=== PATIENT | female | born 1930 | race Caucasian/White ===

== ENCOUNTER → 2017-04-06 | Outpatient (CLI) | payer OTHER ==
[~2017-04-06] MED LIST: GADOBUTROL 10 ML VIAL IVP ONE
== END ==
LOC: FIMAGING 15:24
PROVIDERS: ATTEND Psychiatry & Neurology Neurology
DX: R41.3 Other amnesia (principal); H91.20 Sudden idiopathic hearing loss, unspecified ear
CPT/HCPCS: 70553; A9585

== ENCOUNTER → 2017-04-18 | Outpatient (CLI) | payer OTHER | LOC: BMCIMAGING 14:22 | PROVIDERS: ATTEND Internal Medicine Cardiovascular Disease | DX: R60.0 Localized edema (principal); M79.604 Pain in right leg ==

== ENCOUNTER 2018-01-01 20:43 | Observation (INO) | payer OTHER ==
--- NOTE | 2018-01-01 21:13 | CPEKG ---
Heart Rate: 90 RR Interval: 667 P-R Interval: 172 QRSD Interval: 82 QT Interval: 344 QTC Interval: 421 P [place]: 22 QRS [place]: 26 T Wave [place]: 27 EKG Severity - BORDERLINE ECG - EKG Impression: SINUS RHYTHM EKG Impression: CONSIDER ANTERIOR INFARCT Electronically Signed By: Young Cuevas 02-Jan-2018 05:26:23
[2018-01-01 21:39] LABS: PLATELET COUNT 233 10^3/uL (150-400)
[2018-01-02] MEDS ORDERED: ONDANSETRON DISINTEGRATING 4 MG TAB PO PRN (00:03)
[2018-01-02] MEDS ORDERED: ONDANSETRON 4 MG/2 ML VIAL IVP PRN (00:03)
[2018-01-02] MEDS ORDERED: ACETAMINOPHEN 325 MG TAB PO PRN (00:03)
--- NOTE | 2018-01-02 00:05 | EDPHY ---
H & P Stated Complaint: PASSED OUT 1809,DAVILA EARLIER,VOMIT X1, FIGHTING COLD RECENTLY Time Seen by Provider: 01/01/18 22:07 HPI/ROS: Chief Complaint: Syncope HPI: 87-year-old woman with a history of hypertension whose had very mild upper respiratory congestion for the last couple days was walking down the hallway of her home earlier this evening with her home health aide when she had a witnessed syncopal event. Patient was lowered to the floor. Did not hit her head. There were no preceding symptoms. No chest pain. No shortness of breath. No palpitations. About an hour later she was sitting at the dining room table and had 1 emesis. No fevers or chills. No cough. No nausea vomiting or diarrhea. ROS: 10 point Review of Systems is negative except as noted in the HPI. PMH: Hypertension Medications: Hydrochlorothiazide, lisinopril, atorvastatin, aspirin 81 mg daily Social History: No smoking, no alcohol, no recreational drug use Family History: non-contributory Physical Exam: Gen: Awake, Alert, No Distress HEENT: Nose: no rhinorrhea Eyes: PERRLA, EOMI Mouth: Moist mucosa Neck: Supple, no JVD Chest: nontender, lungs clear to auscultation Heart: S1, S2 normal, 2 in 6 systolic ejection murmur at the left sternal border Abd: Soft, non-tender, no guarding Back: no CVA tenderness, no midline tenderness Ext: no edema, non-tender Skin: no rash Neuro: CN II-XII intact, Sensation grossly intact, Strength 5/5 in bilateral upper and lower extremities - Personal History Current Tetanus/Diphtheria Vaccine: Yes - Medical/Surgical History Hx Asthma: No Hx Chronic Respiratory Disease: No Hx Diabetes: No Hx Cardiac Disease: No Hx Renal Disease: No Hx Cirrhosis: No Hx Alcoholism: No Hx HIV/AIDS: No Hx Splenectomy or Spleen Trauma: No Other PMH: DEMENTIA, HIGH CHOL, HTN - Social History Smoking Status: Never smoked Constitutional: Initial Vital Signs Temperature (C) 36.6 C 01/01/18 20:50 Heart Rate 90 01/01/18 20:50 Respiratory Rate 18 01/01/18 20:50 Blood Pressure 154/92 H 01/01/18 20:50 O2 Sat (%) 98 01/01/18 20:50 O2 Delivery Mode Room Air Allergies/Adverse Reactions: meperidine [Meperidine] Allergy (Intermediate, Verified 01/01/18 20:56) agitation, disorientation Home Medications: Medication Instructions Recorded Aspirin 01/01/18 Atorvastatin Calcium 01/01/18 Coq10 01/01/18 Fish Oil 1,200 mg Softgel 01/01/18 Hydrochlorothiazide [HCTZ (*)] 01/01/18 Lisinopril 01/01/18 Melatonin 01/01/18 Vitamin A 01/01/18 Vitamin D3 01/01/18 Vitamin E 01/01/18 Medical Decision Making - Diagnostics EKG Interpretation: ECG time 9:10 p.m. Sinus rhythm with a rate of 90, normal axis, normal intervals , no acute ST or T-wave changes. ED Course/Re-evaluation: 87-year-old woman who had an unprovoked syncopal episode while walking this evening. She does appear mildly clinically dehydrated. Her sodium is a bit low 128. No acute changes on her ECG. Troponin is normal. I have discussed with Dr. Sullivan, hospitalist. Will admit to [facility] telemetry for gentle hydration and further monitoring. - Data Points Laboratory Results: Laboratory Results 01/01/18 21:15 01/01/18 21:15 01/01/18 01/01/18 21:15 21:15 WBC 8.88 10^3/uL 10^3/uL (3.80-9.50) RBC 4.81 10^6/uL 10^6/uL (4.18-5.33) Hgb 15.3 g/dL g/dL (12.6-16.3) Hct 43.8 % % (38.0-47.0) MCV 91.1 fL fL (81.5-99.8) MCH 31.8 pg pg (27.9-34.1) MCHC 34.9 g/dL g/dL (32.4-36.7) RDW 13.9 % % (11.5-15.2) Plt Count 233 10^3/uL 10^3/uL (150-400) MPV 8.5 fL L fL (8.7-11.7) Neut % (Auto) 90.9 % H % (39.3-74.2) Lymph % (Auto) 2.8 % L % (15.0-45.0) [place] % (Auto) 5.9 % % (4.5-13.0) Eos % (Auto) 0.0 % L % (0.6-7.6) Baso % (Auto) 0.2 % L % (0.3-1.7) Nucleat RBC Rel Count 0.0 % % (0.0-0.2) Absolute Neuts (auto) 8.07 10^3/uL H 10^3/uL (1.70-6.50) Absolute Lymphs (auto) 0.25 10^3/uL L 10^3/uL (1.00-3.00) Absolute Monos (auto) 0.52 10^3/uL 10^3/uL (0.30-0.80) Absolute Eos (auto) 0.00 10^3/uL L 10^3/uL (0.03-0.40) Absolute Basos (auto) 0.02 10^3/uL 10^3/uL (0.02-0.10) Absolute Nucleated RBC 0.00 10^3/uL 10^3/uL (0-0.01) Immature Gran % 0.2 % % (0.0-1.1) Immature Gran # 0.02 10^3/uL 10^3/uL (0.00-0.10) Sodium 128 mEq/L L mEq/L (135-145) Potassium 4.5 mEq/L mEq/L (3.5-5.2) Chloride 94 mEq/L L mEq/L (97-110) Carbon Dioxide 24 mEq/l mEq/l (22-31) Anion Gap 10 mEq/L mEq/L (8-16) BUN 20 mg/dL mg/dL (7-23) Creatinine 0.5 mg/dL L mg/dL (0.6-1.0) Estimated GFR > 60 Glucose 139 mg/dL H mg/dL (70-100) Calcium 8.5 mg/dL mg/dL (8.5-10.4) Troponin I < 0.012 ng/mL ng/mL (0.000-0.034) Departure - Departure Disposition: [facility] Clinical Impression: Syncope Condition: Fair Referrals: Gogo Lawson MD [Primary Care Provider] - As per Instructions
--- NOTE | 2018-01-02 02:18 | PDGENHP ---
History and Physical - Chief Complaint Syncope - History of Present Illness 87 yo F w/ hx of HTN presents after syncopal episode. Patient has had cold symptoms (congestion, fatigue) for 2 days. On the morning of admission she was walking with her AWNING ERECTOR when she experienced a syncopal episode. Per report she was unconscious for about 3 minutes. Bystanders did not note any convulsions. She quickly returned to baseline mental status after the episode. She did have an episode of nause and vomiting shortly after. She has not had similar symptoms before and recently saw her PCP who was happy with her health. She denies any recent decrease in exercise tolerance, dyspnea, chest pain, etc. History Information - Allergies/Home Medication List Allergies/Adverse Reactions: meperidine [Meperidine] Allergy (Intermediate, Verified 01/01/18 20:56) agitation, disorientation Home Medications: Aspirin 01/01/18 [Last Taken Unknown] Atorvastatin Calcium 01/01/18 [Last Taken Unknown] Coq10 01/01/18 [Last Taken Unknown] Fish Oil 1,200 mg Softgel 01/01/18 [Last Taken Unknown] Hydrochlorothiazide [HCTZ (*)] 01/01/18 [Last Taken Unknown] Lisinopril 01/01/18 [Last Taken Unknown] Melatonin 01/01/18 [Last Taken Unknown] Vitamin A 01/01/18 [Last Taken Unknown] Vitamin D3 01/01/18 [Last Taken Unknown] Vitamin E 01/01/18 [Last Taken Unknown] I have personally reviewed and updated: family history, medical history - Past Medical History hypertension - Family History Additional family history: Asked, denies - Social History Smoking Status: Never smoked Review of Systems Review of Systems: ROS: 10pt was reviewed & negative except for what was stated in HPI & below Physical Exam Physical Exam: Temp Pulse Resp BP Pulse Ox 36.9 C 95 18 156/86 H 91 L 01/02/18 01:28 01/02/18 01:28 01/02/18 01:28 01/02/18 01:28 01/02/18 01:28 Constitutional: no apparent distress, not in pain Eyes: PERRL, EOMI Ears, Nose, Mouth, Throat: moist mucous membranes, no oral mucosal ulcers Cardiovascular: regular rate and rhythym, systolic murmur (2/6 @ LUSB), other ( Carotid upstroke not delayed) Respiratory: no respiratory distress, clear to auscultation Gastrointestinal: normoactive bowel sounds, soft, non-tender abdomen Skin: warm, normal color Musculoskeletal: full muscle strength, no muscle tenderness Neurologic: AAOx3, CN II-XII Intact Psychiatric: interacting appropriately, not anxious Lab Data & Imaging Review 01/01/18 21:15 01/01/18 21:15 WBC 8.88 10^3/uL (3.80-9.50) 01/01/18 21:15 RBC 4.81 10^6/uL (4.18-5.33) 01/01/18 21:15 Hgb 15.3 g/dL (12.6-16.3) 01/01/18 21:15 Hct 43.8 % (38.0-47.0) 01/01/18 21:15 MCV 91.1 fL (81.5-99.8) 01/01/18 21:15 MCH 31.8 pg (27.9-34.1) 01/01/18 21:15 MCHC 34.9 g/dL (32.4-36.7) 01/01/18 21:15 RDW 13.9 % (11.5-15.2) 01/01/18 21:15 Plt Count 233 10^3/uL (150-400) 01/01/18 21:15 MPV 8.5 fL (8.7-11.7) L 01/01/18 21:15 Neut % (Auto) 90.9 % (39.3-74.2) H 01/01/18 21:15 Lymph % (Auto) 2.8 % (15.0-45.0) L 01/01/18 21:15 [place] % (Auto) 5.9 % (4.5-13.0) 01/01/18 21:15 Eos % (Auto) 0.0 % (0.6-7.6) L 01/01/18 21:15 Baso % (Auto) 0.2 % (0.3-1.7) L 01/01/18 21:15 Nucleat RBC Rel Count 0.0 % (0.0-0.2) 01/01/18 21:15 Absolute Neuts (auto) 8.07 10^3/uL (1.70-6.50) H 01/01/18 21:15 Absolute Lymphs (auto) 0.25 10^3/uL (1.00-3.00) L 01/01/18 21:15 Absolute Monos (auto) 0.52 10^3/uL (0.30-0.80) 01/01/18 21:15 Absolute Eos (auto) 0.00 10^3/uL (0.03-0.40) L 01/01/18 21:15 Absolute Basos (auto) 0.02 10^3/uL (0.02-0.10) 01/01/18 21:15 Absolute Nucleated RBC 0.00 10^3/uL (0-0.01) 01/01/18 21:15 Immature Gran % 0.2 % (0.0-1.1) 01/01/18 21:15 Immature Gran # 0.02 10^3/uL (0.00-0.10) 01/01/18 21:15 Sodium 128 mEq/L (135-145) L 01/01/18 21:15 Potassium 4.5 mEq/L (3.5-5.2) 01/01/18 21:15 Chloride 94 mEq/L (97-110) L 01/01/18 21:15 Carbon Dioxide 24 mEq/l (22-31) 01/01/18:15 Anion Gap 10 mEq/L (8-16) 01/01/18 21:15 BUN 20 mg/dL (7-23) 01/01/18 21:15 Creatinine 0.5 mg/dL (0.6-1.0) L 01/01/18 21:15 Estimated GFR > 60 01/01/18 21:15 Glucose 139 mg/dL (70-100) H 01/01/18 21:15 Calcium 8.5 mg/dL (8.5-10.4) 01/01/18 21:15 Troponin I < 0.012 ng/mL (0.000-0.034) 01/01/18 21:15 Visualized and Interpreted EKG results: Yes EKG Interpretation: Positive for: normal sinsus rhythm, other (poor R wave progression) Assessment & Plan Assessment: 87 yo F w/ HTN presents w/ syncope of unclear etiology. Plan: 1. Syncope - Unclear etiology, no preceding symptoms to provide clue as to cause ; possibly related to cold symptoms and dehydration from diuretic therapy. Episode not c/w seizure; she denies preceding chest pain. Exam and clinical course not consistent with progressing valvular disease. - Admit for observation - Monitor on telemetry - Hold HCTZ, small IVF bolus - Orthostatic VS - Will hold off on TTE noting patient has been in excellent health until today - PT/OT evaluations 2. Hyponatremia - Likely related to HCTZ with possible contribution from mild viral illness. - Small NS bolus, recheck BMP in AM - Hold HCTZ, considering discontinuing altogether noting age and high likelihood of complications 3. HTN - On HCTZ and lisinopril as outpatient. Hold HCTZ as above. Diet - Regular Ppx - LMWH Code - Full Dispo - Admit under observation status
[2018-01-02] MEDS ORDERED: NS 250 ML IV ONE (02:19)
[2018-01-02 05:50] LABS: PLATELET COUNT 196 10^3/uL (150-400)
--- NOTE | 2018-01-02 06:33 | CPEKG ---
Heart Rate: 86 RR Interval: 698 P-R Interval: 184 QRSD Interval: 80 QT Interval: 352 QTC Interval: 421 P [place]: 23 QRS [place]: 29 T Wave [place]: 19 EKG Severity - NORMAL ECG - EKG Impression: SINUS RHYTHM Electronically Signed By: Nicholas Montague 02-Jan-2018 08:21:13
[2018-01-02] MEDS: ENOXAPARIN 40 MG/0.4 ML SYR SC SCH (09:28)
--- NOTE | 2018-01-02 11:36 | HOSPPROG ---
Hospitalist Progress Note Assessment/Plan: 87 yo F w/ HTN presents w/ syncope of unclear etiology. *Syncope - Unclear etiology, no preceding symptoms to provide clue as to cause -on HCTZ, likely dehydrated -reviewed music director: she has been in sinus w PAC's -12 lead shows sinus -PT and OT -trop negative *recent upper respiratory virus illness *hyponatremia -improved w fluids -cont hold hctz *htn -resumed lisinopril *plan: will ask ST to do a cognitive evaluation, patient somewhat forgetful about short term info, will await PT and OT. Patient lives alone and I'm concerned about her returning home. Will f/u and see their evaluations. Subjective: Adelina has no complaints, no headache. Objective: Vital Signs Temp Pulse Resp BP Pulse Ox 37.2 C 82 20 125/73 H 93 01/02/18 11:09 01/02/18 11:09 01/02/18 11:09 01/02/18 11:09 01/02/18 11:09 Laboratory Results 01/02/18 05:44 01/02/18 05:44 01/01/18 01/02/18 01/03/18 05:59 05:59 05:59 Intake Total 100 Output Total 300 Balance -200 - Physical Exam Constitutional: no apparent distress, other (slender) Eyes: PERRL Ears, Nose, Mouth, Throat: hearing normal Cardiovascular: regular rate and rhythym Respiratory: no respiratory distress Skin: warm Neurologic: AAOx3 Psychiatric: interacting appropriately, poor insight, poor memory ICD10 Worksheet Patient Problems: Problems Problem Status Onset Syncope Acute
[2018-01-02] MEDS: LISINOPRIL 20 MG TAB PO SCH (12:54)
[2018-01-02] MEDS: ASCORBIC ACID 500 MG TAB PO SCH (12:55)
--- NOTE | 2018-01-02 15:21 | ASMTCMCOM ---
CM Note CM Note Notes: Spoke w/pt, states she lives alone and has someone come into help her but she could not remember how many days or from what agency. Pt asked CM to call son who "deals with all that". CM called son Micheal and left a message. PT/OT/MANAGER TRADE still need to eval. DC Plan: TBD Date Signed: 01/02/2018 03:21 PM Electronically Signed By:Lia Jenkins RN
--- NOTE | 2018-01-02 15:47 | ASMTCMCOM ---
CM Note CM Note Notes: Received call from pt's son Micheal, he states pt has early dementia. Her a month ago, they have private pay caregivers for her through [facility] 7 days a week for about 10hrs a day. PT/OT/ART PROFESSOR pending Date Signed: 01/02/2018 03:46 PM Electronically Signed By:Lia Jenkins RN
[2018-01-02] MEDS ORDERED: ASPIRIN 81 MG CHEWABLE TAB PO SCH (18:00)
[2018-01-02] MEDS ORDERED: ATORVASTATIN CALCIUM 20 MG TAB PO SCH (18:00)
[2018-01-02] MEDS ORDERED: MELATONIN 3 MG TAB PO SCH (21:00)
[2018-01-02] MEDS ORDERED: Melatonin [Melatonin 5 Mg] 5 MG PO SCH (21:00)
[2018-01-03] MEDS ORDERED: Herbals/Supplements -Info Only PO SCH (09:00)
[2018-01-03] MEDS ORDERED: CHOLECALCIFEROL VIT D3 2,000 UNITS TAB/CAP PO SCH (09:00)
[2018-01-03] MEDS: ENOXAPARIN 40 MG/0.4 ML SYR SC SCH (10:10)
--- NOTE | 2018-01-03 10:43 | HOSPPROG ---
Hospitalist Progress Note Assessment/Plan: 87 yo F w/ HTN presents w/ syncope of unclear etiology. *Syncope - Unclear etiology, no preceding symptoms to provide clue as to cause -on HCTZ, likely dehydrated -reviewed quality assurance monitor chassis: she has been in sinus w PAC's -12 lead shows sinus -PT and OT tp see -trop negative *recent upper respiratory virus illness *hyponatremia -improved w fluids -cont hold hctz *htn -resumed lisinopril *plan: dc home w home care, will notify Dr Lawson of patient's dc Subjective: Adelina has no complaints, concerned she is getting too much food. Objective: Vital Signs Temp Pulse Resp BP Pulse Ox 37.4 C 87 19 136/75 H 89 L 01/03/18 07:45 01/03/18 07:45 01/03/18 07:45 01/03/18 07:45 01/03/18 07:45 Laboratory Results 01/02/18 05:44 01/02/18 05:44 01/02/18 01/03/18 01/04/18 05:59 05:59 05:59 Intake Total 500 Output Total 600 Balance -100 - Physical Exam Constitutional: no apparent distress, other (thin) Eyes: PERRL Ears, Nose, Mouth, Throat: hearing normal Respiratory: no respiratory distress Gastrointestinal: normoactive bowel sounds Skin: warm Musculoskeletal: generalized weakness Neurologic: AAOx3 Psychiatric: interacting appropriately, not anxious, not encephalopathic ICD10 Worksheet Patient Problems: Problems Problem Status Onset Syncope Acute
[2018-01-03 12:05] VITALS: BP 146/76; PULSE 80; RESP 20; TEMP 98.2; O2SAT 92
[2018-01-03] MEDS: LISINOPRIL 20 MG TAB PO SCH (12:22)
[2018-01-03] MEDS: ASCORBIC ACID 500 MG TAB PO SCH (12:22)
--- NOTE | 2018-01-03 12:47 | PDIAF ---
- Diagnosis Diagnosis: syncope, hyponatremia Code Status: Full Code - Medication Management Discharge Medications: Medications to Continue on Transfer Aspirin [Aspirin 81mg (*)] 81 mg PO DAILY18 01/01/18 [Last Taken 01/01/18] Atorvastatin Calcium [Lipitor 20 mg (*)] 20 mg PO DAILY18 01/01/18 [Last Taken 01/01/18] Cholecalciferol Vit D3 [Vitamin D3 2000 units tab (OTC)] 2,000 units PO DAILY [Last Taken 01/01/18] Lisinopril [Zestril 20 mg (*)] 20 mg PO DAILY@12 01/01/18 [Last Taken 01/01/18] Melatonin [Melatonin 5 mg] 5 mg PO HS 01/01/18 [Last Taken 01/01/18] Ascorbic Acid [Vitamin C 500 mg (*)] 500 mg PO DAILY@12 01/02/18 [Last Taken ] Herbals/Supplements -Info Only 1 ea PO DAILY 01/02/18 [Last Taken Unknown] Discharge Medications: Refer to the Discharge Home Medication list for PRN reason. PICC Care - Routine: N/A - Orders Services needed: Home Care, Registered Nurse, Speech Language Pathologist Home Care Face to Face: I certify that this patient was under my care and that I had the required [id number] encounter meeting the encounter requirements on the discharge day. My findings support the fact that the patient is homebound as defined in Home Care Face to Face Continued: CMS Chapter 7 Medicare Benefits Manual 30.1.1 , The condition of the patient is such that there exists a normal inability to leave home and consequently, leaving home would require a considerable and taxing effort. Diet Recommendation: no restrictions on diet Diet Texture: Regular Texture Diet Additional: patient's HCTZ was stopped due to low sodium levels, Follow up with Dr Lawson to further discuss, Check blood pressure at each visit - Follow Up Care Current Providers and Referrals: Gogo Lawson MD [Primary Care Provider] - As per Instructions
--- NOTE | 2018-01-03 13:11 | ASMTCMCOM ---
CM Note CM Note Notes: Spoke w/pt and daughter in law, CM will set up homecare with Miguelito (RN/CLOTH FOLDER HAND) and set up MOW, meals to start on Sunday. Phillip Burton called and message left regarding discharge plan. DC Plan: Homecare/Miguelito (RN/CLOTH FOLDER HAND) + MOW Date Signed: 01/03/2018 01:10 PM Electronically Signed By:Lia Jenkins RN
--- NOTE | 2018-01-03 13:13 | ASMTLACE ---
LACE Length of stay for Answers: 1 day current admission Acuity / Level of Answers: No Care: Did the patient have an inpatient admission? Comorbidities - select Answers: Dementia all that apply Other Notes: HTN # of Emergency department Answers: 1-2 visits in the last 6 months Score: 6 Date Signed: 01/03/2018 01:12 PM Electronically Signed By:Lia Jenkins RN
--- NOTE | 2018-01-03 13:46 | GDS ---
[f rep st] DISCHARGE SUMMARY DISCHARGE DIAGNOSIS: 1. Syncopal event. 2. Recent upper respiratory viral illness. 3. Hyponatremia. 4. Hypertension. HISTORY OF PRESENT ILLNESS: Briefly, Adelina Yusuf is a very sweet woman who is 87 years old. Sh silvia presented to the emergency room with syncope of unclear etiology. It was noted that her sodium lev els were low. Her hydrochlorothiazide has been held. She has had no further episodes. HOSPITAL COURSE: 1. Syncope. I reviewed her gambling monitor. She has been in sinus with PACs. I suspect that she was dehydrated. Troponin was checked which was negative. 2. Recent upper respiratory viral illness. This was probably impacting her oral intake. 3. Hyponatremia. This improved with fluids. I have recommended to hold her HCTZ until she follows up with her primary care provider. 4. Hypertension. Resumed her lisinopril. DISCHARGE CONDITION: Stable. Blood pressure is 136/75, O2 saturations on room air 90%, respiratory r ate is 19, pulse is 87, temperature 37.4 Celsius. MEDICATIONS AT DISCHARGE: Please see the EMR. DISCHARGE INSTRUCTIONS: 1. To further follow up with Dr. Lawson to discuss further care as far as holding her hydrochlorothia zide. 2. If she develops further syncopal episodes, to return to the ER. /[id number]/MODL
--- NOTE | 2018-01-03 17:36 | ASDISCHSUM ---
Discharge Information Plan Status:Home with Home Health Medically Cleared to Leave: Discharge Date:01/03/2018 03:10 PM CM D/C Disposition:Home Health Service ADT D/C Disposition:[id number] Projected Discharge Date:01/03/2018 11:00 AM Transportation at D/C:Family Discharge Delay Reason: Follow-Up Date:01/03/2018 11:00 AM Discharge Slot: Final Diagnosis: Placement Information Referral Type:*Home Health Care Services Referral ID:[id number] [facility] Address 1:[address] [address] Address 2: City:[place] Selection Factors: State:[place] Patient Contact Information Contact Name:ANDREY Relationship:Son Address:[address] City:[place] Phone: State/Zip Code:[place] [address] Email: Financial Information Financial Class:Medicare Primary Plan Desc:MEDICARE OUTPATIENT Primary Plan Number:[id number] Secondary Plan Desc:[employer] Secondary Plan Number:[id number] Assessment Information LACE LACE Length of stay for Answers: 1 day current admission Acuity / Level of Answers: No Care: Did the patient have an inpatient admission? Comorbidities - select Answers: Dementia all that apply Other Notes: HTN # of Emergency department Answers: 1-2 visits in the last 6 months Score: 6 Date Signed: 01/03/2018 01:12 PM Electronically Signed By:Lia Jenkins RN [facility] CM Progress Note CM Note CM Note Notes: Spoke w/pt, states she lives alone and has someone come into help her but she could not remember how many days or from what agency. Pt asked CM to call son who "deals with all that". CM called phillip Burton and left a message. PT/OT/MOULDER OPERATOR still need to eval. DC Plan: TBD Date Signed: 01/02/2018 03:21 PM Electronically Signed By:Lia Jenkins RN [facility] Progress Note CM Note CM Note Notes: Received call from pt's son Micheal, he states pt has early dementia. Her a month ago, they have private pay caregivers for her through [employer] 7 days a week for about 10hrs a day. PT/OT/MOULDER OPERATOR pending Date Signed: 01/02/2018 03:46 PM Electronically Signed By:Lia Jenkins RN [facility] [place] Progress Note CM Note CM Note Notes: Spoke w/pt and daughter in law, CM will set up homecare with Miguelito (CHUCK/MOULDER OPERATOR) and set up MOW, meals to start on Sunday. Phillip Burton called and message left regarding discharge plan. DC Plan: Homecare/Miguelito (CHUCK/DEMETRA) + MOW Date Signed: 01/03/2018 01:10 PM Electronically Signed By:Lia Jenkins RN Intervention Information Intervention Type:*BAE-Signed Date of Service:01/02/2018 10:47 AM Patient Type:Observation Staff Member:Nicole Garcia Hours: Discipline: Severity: Comment:
== END 2018-01-03 15:10 | disposition home health service (06) ==
LOC: F3E 01-02 00:50
PROVIDERS: ADMIT Student in an Organized Health Care Education/Training Program; ATTEND Hospitalist
DX: R55 Syncope and collapse (principal); E87.1 Hypo-osmolality and hyponatremia; I10 Essential (primary) hypertension; E78.5 Hyperlipidemia, unspecified; F03.90 Unspecified dementia, unspecified severity, without behavioral disturbance, psychotic disturbance, mood disturbance, and anxiety; Z79.82 Long term (current) use of aspirin
CPT/HCPCS: 92523; 93005; 97166; 99285; G0378; G8987; G8988; G9168; G9169; J1650

== ENCOUNTER 2018-04-15 10:33 | Emergency (ER) | payer OTHER ==
[2018-04-15 10:40] VITALS: BP 127/68
--- NOTE | 2018-04-15 10:55 | EDPHY ---
H & P Stated Complaint: bit by her dog r hand/l wrist yesterday evening Time Seen by Provider: 04/15/18 10:34 HPI/ROS: CHIEF COMPLAINT: Dog bite to right hand and left wrist HISTORY OF PRESENT ILLNESS: The patient was bit in the left wrist and right hand by her dog last night at approximately 8:00 p.m.. She sustained a superficial abrasion to the thenar eminence of the right hand. The patient has developed a minimal surrounding amount of erythema. She denies any painful range of motion. She denies limited range of motion. She reports her tetanus shot is up-to-date. REVIEW OF SYSTEMS: A comprehensive 10 point review of systems is otherwise negative aside from elements mentioned in the history of present illness. Source: Patient Exam Limitations: No limitations - Personal History Current Tetanus Diphtheria and Acellular Pertussis (TDAP): Yes - Medical/Surgical History Hx Asthma: No Hx Chronic Respiratory Disease: No Hx Diabetes: No Hx Cardiac Disease: No Hx Renal Disease: No Hx Cirrhosis: No Hx Alcoholism: No Hx HIV/AIDS: No Hx Splenectomy or Spleen Trauma: No Other PMH: DEMENTIA, HIGH CHOL, HTN - Social History Smoking Status: Never smoked - Physical Exam Exam: General Appearance: Alert, no distress Respiratory: There are no retractions, lungs are clear to auscultation Cardiovascular: Regular rate and rhythm Gastrointestinal: Abdomen is soft and nontender, no masses, bowel sounds normal Neurological: Neurologically intact bilateral upper lower extremities Skin: Puncture wound over left wrist, puncture wound right hand, superficial laceration been are eminence right hand Musculoskeletal: Normal range of motion all 4 extremities without evidence of effusion Extremities: symmetrical, full range of motion Constitutional: Initial Vital Signs Temperature (C) 36.4 C 04/15/18 10:37 Heart Rate 74 04/15/18 10:37 Respiratory Rate 17 04/15/18 10:37 Blood Pressure 127/68 H 04/15/18 10:37 O2 Sat (%) 94 04/15/18 10:37 O2 Delivery Mode Room Air Allergies/Adverse Reactions: meperidine [Meperidine] Allergy (Intermediate, Verified 04/15/18 10:34) agitation, disorientation Home Medications: Medication Instructions Recorded Aspirin [Aspirin 81mg (*)] 81 mg PO DAILY18 01/01/18 Atorvastatin Calcium [Lipitor 20 20 mg PO DAILY18 01/01/18 mg (*)] Cholecalciferol Vit D3 [Vitamin D3 2,000 units PO DAILY 01/01/18 2000 units tab (OTC)] Lisinopril [Zestril 20 mg (*)] 20 mg PO DAILY@12 01/01/18 Melatonin [Melatonin 5 mg] 5 mg PO HS 01/01/18 Ascorbic Acid [Vitamin C 500 mg 500 mg PO DAILY@12 01/02/18 (*)] Herbals/Supplements -Info Only 1 ea PO DAILY 01/02/18 Medical Decision Making ED Course/Re-evaluation: The patient presents the ED after dog bite last night. She has nonsuturable laceration over her thenar eminence in the right hand. She has a puncture wound noted to the left wrist. There is minimal surrounding erythema. The patient's tetanus shot is updated. She will be started on Augmentin. She has been given customary aftercare and return precautions. The patient does have a home care nurse with her in the emergency department who can observe for any progressive signs of worsening cellulitis. Departure - Departure Disposition: Home, Routine, Self-Care Clinical Impression: Dog bite, hand Qualifiers: Encounter type: initial encounter Condition: Good Instructions: Animal Bite (ED) Additional Instructions: 1. Take antibiotics as directed for next 10 days. 2. Return to the ED for markedly worsening pain, redness, fever or other concerns. This may be the sign of worsening infection requiring more aggressive IV therapy and possible hospitalization. 3. Please follow up with your primary care provider for a wound check in the next several days. Referrals: Gogo Lawson MD [Primary Care Provider] - As per Instructions
== END 2018-04-15 11:21 | disposition home or self-care (01) ==
DX: S61.451A Open bite of right hand, initial encounter (principal); I10 Essential (primary) hypertension; Z79.82 Long term (current) use of aspirin; W54.0XXA Bitten by dog, initial encounter